=== PATIENT | female | born 1940 | race Caucasian/White ===

== ENCOUNTER → 2020-10-13 | Outpatient (CLI) | payer MEDICARE, OTHER | LOC: M WHC 13:04 | PROVIDERS: ATTEND Internal Medicine | DX: Z12.31 Encounter for screening mammogram for malignant neoplasm of breast (principal) ==

== ENCOUNTER → 2020-10-20 | Outpatient (CLI) | payer MEDICARE, OTHER ==
--- NOTE | 2020-10-20 16:35 | REP ---
INDICATION: ACUTE LYPHANDEOPATHY OF NECK. COMPARISON: None. TECHNIQUE: Multiple sonographic images in the area of a palpable lump on the right side of the neck. FINDINGS: The palpable lump on the right side of the neck corresponds to the carotid artery bulb. No enlarged lymph nodes are identified. No soft tissue masses are identified. IMPRESSION: There are no masses or lymphadenopathy in the region of the palpable lump on the right side of the neck. The palpable lump corresponds to the carotid artery bulb. <Electronically signed by Cristopher Montero > 10/20/20 [id number]
== END ==
LOC: M RAD 14:17 → EDUNIT# 14:30
PROVIDERS: ATTEND Internal Medicine
DX: R59.0 Localized enlarged lymph nodes (principal)

== ENCOUNTER → 2022-12-21 | Outpatient (CLI) | payer MEDICARE, OTHER ==
[~2022-12-21] MED LIST: ISOVUE-300 61% 100ML VIAL As Ordered ONE; LIDOCAINE 1% MDV 20ML VIAL As Ordered ONE; TRIAMCINOLONE ACETONIDE SUSP 40MG/ML 1ML VIAL As Ordered ONE
== END ==
LOC: M RAD 14:40
PROVIDERS: ATTEND Physician Assistant
DX: M16.11 Unilateral primary osteoarthritis, right hip (principal)
CPT/HCPCS: 20610; 77002; J3301; Q9967

== ENCOUNTER → 2023-01-10 | Outpatient (CLI) | payer MEDICARE, OTHER | LOC: M RAD 09:59 | PROVIDERS: ATTEND Physician Assistant | DX: Z96.651 Presence of right artificial knee joint (principal) | CPT/HCPCS: 78315; A9503 ==